=== PATIENT | male | born 2000 | race Caucasian/White ===

== ENCOUNTER 2019-09-21 05:06 | Emergency (ER) | payer SELFPAY ==
[~2019-09-21] VITALS: Ht 172.7 cm; Wt 72.7 kg
[2019-09-21] MEDS ORDERED: ONDANSETRON 4 MG (ZOFRAN) ORAL DISSOLVE TAB PO STA (05:31)
--- NOTE | 2019-09-21 05:31 | ED Cough/URI ---
General Chief Complaint: Cough/Cold/Flu Symptoms Stated Complaint: HEADACHE/NAUSEA/STOMACH ACHE Nursing Triage Note: pt states cough, with n/v/d x 2 days, no treatment and no fever Sepsis Screen: No Definite Risk Source: patient, family (mom) Exam Limitations: no limitations History of Present Illness Date Seen by Provider: Sep 21, 2019 Time Seen by Provider: 05:15 Initial Comments Patient presents to ER by private conveyance with mom and chief complaint for the past for 5 days he's had malaise cough vomiting diarrhea. Last week he had about a 1 day stomach bug with nausea vomiting diarrhea self-limited. He has not been taking any Imodium. He's not been drinking very well so mom was concerned about dehydration. He does not have any significant medical history or abdominal surgeries. He is having no abdominal pain. No fevers or chills. He has not been seen anybody yet. Allergies and Home Medications Allergies Coded Allergies: No Known Drug Allergies (Unverified , 09/21/19) Patient Home Medication List Home Medication List Reviewed: Yes Review of Systems Review of Systems Constitutional: No chills, No diaphoresis, No fever, No malaise EENTM: No ear discharge, No ear pain Respiratory: No cough, No short of breath Cardiovascular: No chest pain, No edema Gastrointestinal: No abdominal pain; diarrhea, nausea, vomiting Genitourinary: No discharge, No dysuria Musculoskeletal: No back pain, No joint pain All Other Systems Reviewed Negative Unless Noted: Yes Past Rcqmybw-Rkzwui-Zcwsmd Hx Patient Social History Alcohol Use: Denies Use Recreational Drug Use: No Smoking Status: Current Everyday Smoker Type Used: Cigarettes 2nd Hand Smoke Exposure: No Recent Foreign Travel: No Contact w/Someone Who Travel: No Recent Infectious Disease Expo: No Recent Hopitalizations: No Physical Abuse: No Sexual Abuse: No Mistreated: No Fear: No Seasonal Allergies Seasonal Allergies: No Past Medical History Surgeries: No Respiratory: No Cardiac: No Neurological: No Genitourinary: No Gastrointestinal: No Musculoskeletal: No Endocrine: No HEENT: No Cancer: No Psychosocial: No Integumentary: No Blood Disorders: No Physical Exam Vital Signs - First Documented 09/21/19 05:19 Temp 37.0 Pulse 91 Resp 16 B/P (MAP) 126/76 (93) O2 Delivery Room Air Capillary Refill : Less Than 3 Seconds Height: '" Weight: lbs. oz. kg; 24.00 BMI Method: General Appearance: no apparent distress, thin Eyes: Bilateral Eye Normal Inspection, Bilateral Eye PERRL, Bilateral Eye EOMI HEENT: PERRL/EOMI, normal ENT inspection, TMs normal, pharynx normal (oropharynx is mildly dry) Neck: full range of motion, normal inspection Respiratory: no respiratory distress, no accessory muscle use Cardiovascular: normal peripheral pulses, regular rate, rhythm Gastrointestinal: normal bowel sounds, non tender, soft, no organomegaly Neurologic/Psychiatric: alert, normal mood/affect, oriented x 3 Skin: normal color, warm/dry, other (tract umaña over upper extremity veins) Progress/Results/Core Measures Suspected Sepsis Recent Fever Within 48 Hours: No Infection Criteria Present: None New/Unexplained Altered Menta: No Sepsis Screen: No Definite Risk SIRS Temperature: Pulse: 91 Respiratory Rate: 16 Blood Pressure 126 /76 Mean: 93 Results/Orders My Orders Orders - HERBERT BENITO Ondansetron Oral Dissolve Tab (Zofran (09/21/19 05:31) Vital Signs/I&O 09/21/19 09/21/19 05:19 05:19 Temp 37.0 Pulse 91 Resp 16 B/P (MAP) 126/76 (93) O2 Delivery Room Air Capillary Refill : Less Than 3 Seconds Blood Pressure Mean: 93 POS Progress Note : Time: 05:33 Progress Note Patient's vital signs are aseptic with a pulse steady in the 80s. He'll be able to the take oral fluids better if we give him some ondansetron. We'll give him a prescription for that plus some Tessalon Perles. Some counseling for management of viral cold. Departure Impression Primary Impression: Viral upper respiratory tract infection with cough Additional Impressions: Gastroenteritis and colitis, viral Mild dehydration Disposition: 01 HOME, SELF-CARE Condition: Stable Departure-Patient Inst. Decision time for Depature: 05:35 Referrals: NEFTALY BRUCE MD (PCP/Family) Primary Care Physician Patient Instructions: Viral Gastroenteritis, Adult (DC), Cough, Runny Nose, and the Common Cold Add. Discharge Instructions: The same virus that causes a cold will transit interior get an cause vomiting and diarrhea. Wash her hands, use hand contact lens cutter's and use surface disinfectants. Ondansetron one tablet every 6 hours under the tongue as necessary for nausea or vomiting. Drink lots of fluids. Sports drinks such as Gatorade or Powerade are recommended. Tylenol and/or ibuprofen as necessary for body aches or chills. If your symptoms persist more than 7-10 days you need to follow-up with a primary care doctor. If you begin to have intractable abdominal pain not responsive to Tylenol, ibuprofen or antacids then you should return to the ER. Start using Imodium 2 tablets all by one tablet every 4 hours afterwards if you're having loose watery stools. Tessalon Perles 1 capsule every 6 hours as needed for cough. Humidifiers and vapor rubs such as Vicks or Mentholatum can be helpful for cough. Salt water gargles as often as necessary for sore throat. All discharge instructions reviewed with patient and/or family. Voiced understanding. Scripts Ondansetron (Ondansetron Odt) 4 Mg Tab.rapdis 4 MG PO Q6H PRN for NAUSEA/VOMITING, #8 TAB 0 Refills Prov: HERBERT BENITO 09/21/19 Benzonatate (Tessalon Perle) 100 Mg Capsule 100 MG PO Q6H PRN for COUGH, #20 CAP 0 Refills Prov: HERBERT BENITO 09/21/19 Work/School Note: Work Release Form Date Seen in the Emergency Department: Sep 21, 2019 Return to Work: Sep 23, 2019 Restrictions: No Restrictions HERBERT BENITO Sep 21, 2019 05:30 POS
[2019-09-21] MEDS ORDERED: ONDA4TAB11 PO (05:39)
[2019-09-21] MEDS ORDERED: BENZ-13 PO (05:39)
[2019-09-21 05:42] VITALS: BP 126/76
--- OUTSIDE RECORDS SUMMARY | 2019-10-15 15:00 | XMS REPORT | Continuity of Care Document ---
Author Organization Unknown Address Unknown Phone Unavailable Allergies Active Description Code Type Severity Reaction Onset Reported/Identified Relationship to Patient Clinical Status Yes No Known Drug Allergies [id number] Drug Allergy Unknown N/A 09/21/2019 Medications There is no data. Problems Date Dx Coded Attending Type Code Diagnosis Diagnosed By 09/26/2019 HERBERT BENITO MD Ot A08. 4 VIRAL INTESTINAL INFECTION, UNSPECIFIED 09/26/2019 HERBERT BENITO MD Ot E86. 0 DEHYDRATION 09/26/2019 HERBERT BENITO MD Ot F17.210 NICOTINE DEPENDENCE, CIGARETTES, UNCOMPL 09/26/2019 HERBERT BENITO MD Ot J06. 9 ACUTE UPPER RESPIRATORY INFECTION, UNSPE 09/26/2019 HERBERT BENITO MD Ot R05 COUGH 09/26/2019 HERBERT BENITO MD Ot Z91. 14 PATIENT'S OTHER NONCOMPLIANCE WITH MEDIC 09/27/2019 HERBERT BENITO MD Ot A08. 4 VIRAL INTESTINAL INFECTION, UNSPECIFIED 09/27/2019 HERBERT BENITO MD Ot E86. 0 DEHYDRATION 09/27/2019 HERBERT BENITO MD Ot F17.210 NICOTINE DEPENDENCE, CIGARETTES, UNCOMPL 09/27/2019 HERBERT BENITO MD Ot J06. 9 ACUTE UPPER RESPIRATORY INFECTION, UNSPE 09/27/2019 HERBERT BENITO MD Ot R05 COUGH 09/27/2019 HERBERT BENITO MD Ot Z91. 14 PATIENT'S OTHER NONCOMPLIANCE WITH MEDIC Procedures There is no data. Results There is no data. Encounters ACCT No. Visit Date/Time Discharge Status Pt. Type Provider Facility Loc./Unit Complaint [id number] 07/18/2019 10:50:00 07/18/2019 23:59:5 9 CLS Outpatient NEFTALY BRUCE [facility] [id number] 09/21/2019 05:11:00 019 05:42:00 DIS Outpatient MILLI BENITO [facility]US [facility] ER FS HEADACHE/NAUSEA/STOMACH ACHE
== END 2019-09-21 05:42 | disposition home or self-care (01) ==
LOC: ER FS 05:11
DX: J06.9 Acute upper respiratory infection, unspecified (principal); A08.4 Viral intestinal infection, unspecified; E86.0 Dehydration; F17.210 Nicotine dependence, cigarettes, uncomplicated; Z91.14 Patient's other noncompliance with medication regimen
CPT/HCPCS: 99283

== ENCOUNTER 2021-06-25 05:37 | Emergency (ER) | payer SELFPAY ==
[~2021-06-25] VITALS: Ht 172.7 cm; Wt 63.6 kg
[~2021-06-25 05:37] MED LIST: BENZ-13 PO; ONDA4TAB11 PO
--- NOTE | 2021-06-25 06:20 | ED Lower Extremity ---
General Chief Complaint: Laceration Stated Complaint: RIGHT LEG LACERATION Nursing Triage Note: Pt awake et alert, ambulated from waiting room to ER1 without difficulty. Pt reports that he was drinking at a [employer] et playing with a knife. Pt accidentally cut himself across his right thigh. Laceration is 10 cm across et 0.25 cm to 1.75 cm wide. Wound is actively oozing blood. Pt denies attempts to harm himself or attempts by others to harm him. Airway intact. Respirations even et unlabored. Skin warm, dry, appropriate for ethnicity. No sx of acute distress. 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 NO other injury, tetanus UTD. Allergies and Home Medications Allergies Coded Allergies: codeine (Verified Allergy, Unknown, 06/25/21) Patient Home Medication List Home Medication List Reviewed: Yes Benzonatate (Tessalon Perle) 100 Mg Capsule, 100 MG PO Q6H PRN for COUGH Prescribed by: HERBERT BENITO on 09/21/1939 Ondansetron (Ondansetron Odt) 4 Mg Tab.rapdis, 4 MG PO Q6H PRN for NAUSEA/VOMITING Prescribed by: HERBERT BENITO on 09/21/1939 Review of Systems Constitutional: No dizziness, No fever, No malaise Respiratory: no symptoms reported Cardiovascular: no symptoms reported Musculoskeletal: see HPI; No back pain, No joint pain; muscle pain; No neck pain Skin: see HPI; No rash; other (large laceration - right thigh) Past Piftlox-Rqdkmf-Lntotq Hx Patient Social History Tobacco Use?: No Use of E-Cig and/or Vaping dev: Yes E-Cig or Vaping type used: Nicotine Use of E-Cig and/or Vaping Eligio: Current Everyday User Substance use?: No Alcohol Use?: Yes Alcohol type: Beer, Hard Liquor Alcohol Frequency: Several times a month Pt feels they are or have been: No Immunizations Up To Date Influenza Vaccine Up-to-Date: No; Not Current Seasonal Allergies Seasonal Allergies: No Past Medical History Surgeries: No Respiratory: No Cardiac: No Neurological: No Genitourinary: No Gastrointestinal: No Musculoskeletal: No Endocrine: No HEENT: No Cancer: No Psychosocial: No Integumentary: No Blood Disorders: No Physical Exam Vital Signs Vital Signs - First Documented 06/25/21 05:40 Temp 36.5 Pulse 87 Resp 14 B/P (MAP) 126/91 (103) Pulse Ox 98 O2 Delivery Room Air Capillary Refill : Less Than 3 Seconds Height, Weight, BMI Height: '" Weight: lbs. oz. kg; 21.00 BMI Method: General Appearance: WD/WN, no apparent distress Hips: bilateral hip non-tender, bilateral hip normal inspection, bilateral hip normal range of motion, bilateral hip no evidence of injury Legs: bilateral leg non-tender, bilateral leg normal inspection, bilateral leg normal range of motion, bilateral leg no evidence of injury Knees: bilateral knee non-tender, bilateral knee normal inspection, bilateral knee normal range of motion, bilateral knee no evidence of injury Neurologic/Tendon: normal sensation, normal motor functions, normal tendon functions Neurologic/Psychiatric: no motor/sensory deficits, alert Skin: normal color, warm/dry, other (large horizontal linear laceration- right mid anterior thigh, 12 cm, + hemostasis) Procedures/Interventions Wound Location: Lower Extremities Wound Length (cm): 12 Wound's Depth, Shape: linear Wound Explored: clean Irrigated w/ Saline (ccs): 50 Betadine Prep?: No (sure cleans) Anesthesia: 1% Lidocaine Volume Anesthetic (ccs): 20 Suture: Monocryl Suture Size: 3-0 (running locking stitch) Sterile Dressing Applied?: Yes Progress/Results/Core Measures Results/Orders Vital Signs/I&O 06/25/21 05:40 Temp 36.5 Pulse 87 Resp 14 B/P (MAP) 126/91 (103) Pulse Ox 98 O2 Delivery Room Air Blood Pressure Mean: 103 Departure Impression Primary Impression: Laceration of thigh Qualified Codes: S71.111A - Laceration without foreign body, right thigh, initial encounter Disposition: 01 HOME, SELF-CARE Condition: Improved Departure-Patient Inst. Decision time for Depature: 06:18 Referrals: NEFTALY BRUCE MD (PCP/Family) Primary Care Physician Patient Instructions: Laceration Repair With Stitches ED Add. Discharge Instructions: follow up for suture removal in 14 days. Keep the wound clean and dry. You may wash with regular soap and water, do not soak the wound in a tub. apply a thin layer of antibiotic ointment once daily, for the first week follow up immediately for any signs of infection: increasing redness around the wound, swelling, pain or wound drainage All discharge instructions reviewed with patient and/or family. Voiced understanding. GARRICK MEDRANO DO Jun 25, 2021 06:20
[2021-06-25 06:25] VITALS: BP 126/91
== END 2021-06-25 06:25 | disposition home or self-care (01) ==
LOC: EDUNIT# 05:37 → ER FS 05:41
DX: S71.111A Laceration without foreign body, right thigh, initial encounter (principal); F17.290 Nicotine dependence, other tobacco product, uncomplicated; W26.0XXA Contact with knife, initial encounter
CPT/HCPCS: 99281